=== PATIENT | female | born 1955 | race Caucasian/White ===

== ENCOUNTER 2016-10-16 10:28 | Emergency (ER) ==
[2016-10-16] MEDS ORDERED: NS 1,000 ML IV ONE ×2 (11:09→13:10)
[2016-10-16] MEDS ORDERED: ZOFRAN IV ONE (11:09)
--- NOTE | 2016-10-16 11:12 | PROVIDER DOCUMENTATION ---
HPI-Abdominal Pain/GI Problem - General Source: patient - History of Present Illness-ABD Nature of Presenting Problems: Pt is 60 y/o F presents to the ED with abdominal cramping. Pt states the symptoms started this am at 0300. Pt states N/V/D. Pt states having a ileostomy bag. Pt states has changed the bag 8 times today and the bag have been full of clear liquid. Pt states she usually changes bags 3 to 4 times a day. Pt states she is dehydrated and she has had prior episodes. Pt denies F Abdominal Pain Onset Location: reports: generalized abdomen Pain Radiation: reports: no radiation Quality of Pain: reports: cramping Severity in ED: reports: mild Onset/Duration: reports: this morning (0300) Timing: reports: still present, intermittent Activities at Onset: reports: light activity Exposure to sick contacts?: No Modifying Factors: improves with: nothing Associated Symptoms: reports: diarrhea, loss of appetite, nausea, shortness of breath, vomiting. denies: anxiety, arm pain, back/neck pain, chest pain, constipation, cough, diaphoresis, dizziness, EENT symptoms, fatigue, fever/ chills, genitourinary problems, headaches, heartburn, joint pain, malaise, muscle aches, sinus congestion/drainage, rash, seizure, sensory/motor loss, pain with inspiration, swelling/mass in abdomen, syncope, weakness, trouble walking Last BM: this morning Dark Stools Present?: reports: none noticed Rectal Bleeding: reports: none # of Diarrhea Episodes: 8 Rectal Pain: reports: none # of Vomiting Episodes: 4 Emesis Description: reports: clear Bruising or Bleeding Gums?: No Similar Symptoms Previously?: Yes Recently seen or treated by another doctor?: No <Keira Coe - Last Filed: 10/16/16 13:48> <Humberto Steele I - Last Filed: 10/16/16 13:52> - General Chief Complaint: Diarrhea Stated Complaint: N/V/D Time Seen by Provider: 10/16/16 10:53 Allergies/Adverse Reactions: Patient Allergies Allergy/AdvReac Type Severity Reaction Status Date / Time esomeprazole magnesium * Allergy Unknown Verified 10/16/16 10:47 [From Nexium] Sulfa (Sulfonamide AdvReac HEADACHE Verified 10/16/16 10:47 Antibiotics) Home Medications: Home Medication List Medication Instructions Recorded Confirmed Last Taken Type Omeprazole [Prilosec] 20 mg PO DAILY@0700 12/21/14 08/05/16 10/23/15 History Citalopram Hydrobromide [Celexa] 5 mg PO HS 06/17/15 08/05/16 10/23/15 History Tramadol HCl [Ultram] 50 mg PO BID PRN 08/05/16 08/05/16 Unknown History CefDINIR [Omnicef] 300 mg PO BID #14 capsule 08/11/16 Unknown Rx Prednisone See Taper PO DAILY #30 tablet 08/11/16 Unknown Rx Warfarin [Coumadin] 5 mg PO QHS #45 tablet 08/11/16 Unknown Rx Levofloxacin [Levaquin] 750 mg PO DAILY #10 tablet 10/16/16 Unknown Rx Ondansetron Odt [Zofran 8Mg Odt] 8 mg PO Q8H PRN PRN #20 tablet 10/16/16 Unknown Rx Review of Systems - Adult - REVIEW OF SYSTEMS - ADULT Constitutional: denies: chills, fever Eyes: denies: blurred vision, double vision Ears, Nose, Mouth & Throat: denies: ear pain, nose pain, throat pain Cardiovascular: reports: irregular heart rate (tachy). denies: chest pain, heart murmur Respiratory: reports: shortness of breath, wheezing. denies: cough Gastrointestinal: reports: abdominal pain, diarrhea, nausea, vomiting Genitourinary: denies: dysuria, hematuria Musculoskeletal: denies: bone pain, joint pain, neck pain Integumentary: denies: hives, itching Neurological: denies: dizziness/vertigo, headache/migraines Psychiatric: reports: no symptoms reported Endocrine: reports: no symptoms reported Hematologic/Lymphatic: reports: no symptoms reported Allergic/Immunologic: reports: no symptoms reported All Other Systems: Reviewed and Negative <Keira Coe - Last Filed: 10/16/16 13:48> Past History - Adult - PAST MEDICAL HISTORY-ADULT Review of Records: reports: Nursing Assessment Review, Medications Reviewed, Social history reviewed & non-contributory. Major Childhood Illnesses: reports: denies history Cardiovascular: reports: blood clots (PE,DVT) Respiratory: reports: bronchitis, pneumonia Gastrointestinal: reports: Crohn's, inflammatory bowel disease Obstetrical/Gynecological: reports: denies history Genitourinary: reports: denies history Musculoskeletal: reports: denies history Neurological: reports: denies history Psychiatric: reports: denies history Endocrine/Immune: reports: denies history Other Conditions: reports: denies history - PRIOR SURGERIES/PROCEDURES Surgical/Procedure History: reports: cholecystectomy, , bowel surgery ( x7 with illestomy) - IMMUNIZATION STATUS Childhood Immunizations: See Nurse Assessment Flu Vaccine: See Nurse Assessment - FAMILY HISTORY Family History: reviewed, not pertinent - SOCIAL HISTORY Smoking: cigarettes, greater than 1 pack/day Provider spent 3-5 mins advising pt. on dangers of tobacco.: Discussed manners to quit use, and f/u contacts for add'l counseling. Substance Use: denies Living Situation: family <Keira Coe - Last Filed: 10/16/16 13:48> Physical Exam-General - PHYSICAL EXAM-ADULT Initial Vital Signs Reviewed: Yes - CONSTITUTIONAL General Appearance: appears well, alert, no apparent distress - EYES Eyes: PERRL/EOMI, pink conjunctivae, fundi clear, no AV nicking - HEAD, EARS, NOSE, MOUTH & THROAT HENMT: normocephalic/atraumatic, moist mucous membranes, normal ENT inspection, TMs normal, pharynx normal - NECK Neck: non-tender, full range of motion, supple, normal inspection - RESPIRATORY Respiratory: chest non-tender, normal breath sounds, no pleuratic chest pain, no respiratory distress, no accessory muscle use, wheezing, increased rate - CARDIOVASCULAR Cardiovascular: normal peripheral pulses, no edema, no gallop, no JVD, no murmur , tachycardia - GASTROINTESTINAL (ABDOMEN) Abdominal Exam: normal bowel sounds, soft, no organomegaly, no pulsatile mass, tenderness (generalized) - LYMPHATIC Lymphatic: no adenopathy - MUSCULOSKELETAL Back Exam: normal inspection, no CVA tenderness, no vertebral tenderness Extremity: normal range of motion, non-tender, normal gait, normal inspection, no pedal edema, no calf tenderness, normal capillary refill - SKIN Integumentary: normal color, normal turgor, warm/dry - NEUROLOGIC Neurologic: grossly normal - PSYCHIATRIC Psych/Mental Status: normal mood/affect, oriented x 3 <Keira Coe - Last Filed: 10/16/16 13:48> Progress - PLAN OF CARE/RESULTS Progress/Plan/Lab Results: Orders Category Date Time Status Saline Loc DIRECTED Care 10/16/16 11:08 Active NPO Diet 10/16/16 11:08 Active KUB ABDOMEN [RAD] Stat Exams 10/16/16 11:09 Ordered AMYLASE [CHEM] Stat Lab 10/16/16 11:08 Uncollected CBC WITH ELECTRONIC DIFF [HEME] Stat Lab 10/16/16 11:08 Uncollected COMPREHENSIVE METABOLIC PANEL [CHEM] Stat Lab 10/16/16 11:08 Uncollected LIPASE [CHEM] Stat Lab 10/16/16 11:08 Uncollected URINALYSIS W/POSS RFLX CULT [URINALYSIS] Stat Lab 10/16/16 11:08 Uncollected 0.9% Sodium Chloride Inj [Ns] 1,000 ml Med 10/16/16 11:09 Active IV 999 mls/hr Ondansetron [Zofran] Med 10/16/16 11:09 Discontinued 4 mg IV NOW ONE Vital Signs - 24 hr 10/16/16 10:42 Temperature 98.0 F Pulse Rate 125 H Respiratory 16 Rate Blood Pressure 103/069 O2 Sat by Pulse 125 H Oximetry Laboratory Tests 10/16/16 10/16/16 11:49 11:49 WBC 12.38 H RBC 5.83 H Hgb 15.8 Hct 48.0 H MCV 82.3 MCH 27.1 MCHC 32.9 L RDW Std Deviation 13.9 Plt Count 348 MPV 9.2 Immature Gran % (Auto) 0.2 Neut % (Auto) 90.6 H Lymph % (Auto) 5.1 L Barnes % (Auto) 3.6 Eos % (Auto) 0.3 Baso % (Auto) 0.2 Immature Gran # (Auto) 0.02 Neut # (Auto) 11.23 H Lymph # (Auto) 0.63 L Barnes # (Auto) 0.44 Eos # (Auto) 0.04 Baso # (Auto) 0.02 Sodium 137 Potassium 4.1 Chloride 101 Carbon Dioxide 19 L Anion Gap 18 BUN 16 Creatinine 1.5 H Estimated GFR/1.73 m2 35 BUN/Creatinine Ratio 11 Glucose 149 H Calculated Osmolality 278 Calcium 11.4 H Total Bilirubin 0.40 AST 27 ALT 24 Alkaline Phosphatase 117 H Total Protein 9.1 H Albumin 4.9 Globulin 4.0 Albumin/Globulin Ratio 1.0 Amylase 106 Lipase 90 H <Saravanan,Keira - Last Filed: 10/16/16 13:48> Departure <Keira Coe - Last Filed: 10/16/16 13:48> - Departure Time of Disposition Order: 13:49 Certified Medical Emergency: Emergent <Humberto Steele I - Last Filed: 10/16/16 13:52> - Departure DIAGNOSIS: Nausea, vomiting and diarrhea, Gastroenteritis and colitis, viral, Nausea & vomiting Disposition: HOME 01 Condition: Stable Prescriptions: Levofloxacin [Levaquin] 750 mg PO DAILY #10 tablet Ondansetron Odt [Zofran 8Mg Odt] 8 mg PO Q8H PRN PRN #20 tablet PRN Reason: Nausea Referrals: Jesus Dudley MD [Primary Care Provider] - Attestation - Scribe Verification/Attestation Scribe:: Keira Coe Acting as Scribe for:: Humberto Steele Scribe documention review:: This chart was documented by a scribe and accurately reflects the service the provider performed and the decisions made by the provider. <Keira Coe - Last Filed: 10/16/16 13:48> Physician Attestation - Physician Attestation I, the provider, attest to the following statement:: Humberto Steele Physician documentation Attestation:: This documentation recorded by the scribe accurately reflects the service I personally performed and the decisions made by me. <Humberto Steele I - Last Filed: 10/16/16 13:52>
[2016-10-16 12:17] LABS: MANUAL DIFF NEEDED? NO
[2016-10-16 12:28] LABS: BASO% 0.2 % (0.0-0.8); EOS# 0.04 X1000 (0.0-0.7); EOS% 0.3 % (0.0-10.0); HEMOGLOBIN 15.8 g/dL (12.0-16.0); IMM GRAN# 0.02 X1000 (0.0-0.04); IMM GRAN% 0.2 % (0.0-0.5); LYMPH# 0.63 X1000 (1.2-3.4); LYMPH% 5.1 % (20.5-51.1); MCH 27.1 PG (27-31); MCHC 32.9 g/dL (33-37); MCV 82.3 FL (81-99); MONO# 0.44 X1000 (0.11-0.59); MONO% 3.6 % (1.7-9.3); MPV 9.2 FL (7.4-10.4); PLT 348 X1000 (130-400); RBC 5.83 XMIL (4.2-5.4)
[2016-10-16 12:33] LABS: NEUT% 90.6 % (42.2-75.2)
[2016-10-16 12:50] LABS: ALBUMIN 4.9 g/dL (3.5-5.0); CALCIUM 11.4 mg/dL (8.8-10.2); POTASSIUM 4.1 mmol/L (3.5-5.1); TOTAL BILIRUBIN 0.4 mg/dL (0.20-1.00); TOTAL PROTEIN 9.1 g/dL (6.3-8.3)
[2016-10-16 14:09] VITALS: BP 130/87
== END 2016-10-16 14:20 | disposition home or self-care (01) ==
LOC: P.ED 10:28
DX: A08.4 Viral intestinal infection, unspecified (principal); R11.2 Nausea with vomiting, unspecified; R19.7 Diarrhea, unspecified; R10.84 Generalized abdominal pain; R06.02 Shortness of breath; R00.0 Tachycardia, unspecified; R06.2 Wheezing; R10.817 Generalized abdominal tenderness; Z79.899 Other long term (current) drug therapy; F17.210 Nicotine dependence, cigarettes, uncomplicated; Z71.6 Tobacco abuse counseling; Z93.2 Ileostomy status; Z86.711 Personal history of pulmonary embolism; Z86.718 Personal history of other venous thrombosis and embolism
CPT/HCPCS: 36415; 80053; 82150; 83690; 85025; 96361; 96374; J2405; J7030